=== PATIENT | male | born 1935 | race African-American/Black ===

== ENCOUNTER → 2016-12-23 | Outpatient (CLI) | payer MEDICARE ==
[~2016-12-23] MED LIST: CARVEDILOL3.125 MG PO; LASIX 20MG. TAB20 MG PO; SPIRONOLACTONE25 MG NG
[2016-12-23 11:23] LABS: LYMPH # 0.6 K/mm3 (0.7-4.5); LYMPH % 17.7 % (10-50)
[2016-12-23 13:05] LABS: BUN 61 mg/dL (7-18)
[2016-12-23 13:11] LABS: GFR (ESTIMATED) 19 ML/MIN (>60)
[2016-12-23 16:23] LABS: URINE BILIRUBIN - DIPSTICK NEGATIVE (NEG); URINE BLOOD NEGATIVE (NEG)
== END ==
LOC: LAB 10:36
PROVIDERS: Internal Medicine Nephrology
DX: N18.4 Chronic kidney disease, stage 4 (severe) (principal)

== ENCOUNTER → 2017-07-08 | Outpatient (CLI) | payer MEDICARE ==
[2017-07-08 09:41] LABS: URINE BILIRUBIN - DIPSTICK NEGATIVE (NEG); URINE BLOOD NEGATIVE (NEG)
[2017-07-08 10:17] LABS: URINE SQUAMOUS CELLS OCC #/hpf (OCC)
[2017-07-08 10:31] LABS: HEMOGLOBIN 11.8 g/dL (14.1-18.0); LYMPH # 0.6 K/mm3 (0.7-4.5); LYMPH % 14.6 % (10-50)
[2017-07-08 11:16] LABS: BUN 62 mg/dL (7-18); GFR (ESTIMATED) 19 ML/MIN (>60)
[2017-07-09 08:40] LABS: Vitamin D, 25-Hydroxy 18.5 ng/mL (30.0-100.0)
[2017-07-09 20:36] LABS: Calcium, Ionized 5.1 mg/dL (4.5-5.6)
== END ==
LOC: LAB 09:19
PROVIDERS: Internal Medicine Nephrology
DX: N18.4 Chronic kidney disease, stage 4 (severe) (principal)